=== PATIENT | female | born 1995 | race Caucasian/White ===

== ENCOUNTER → 2018-05-31 | Outpatient (CLI) | payer BC ==
[~2018-05-31] MED LIST: BCPILLS PO; BUPRTAB51 PO; CLON1TAB4 PO; EFF75 PO; TRAZ50TA35 PO
== END | disposition home or self-care (01) ==
LOC: C.NEUR 11:40
PROVIDERS: ATTEND Internal Medicine Pulmonary Disease
DX: G47.21 Circadian rhythm sleep disorder, delayed sleep phase type (principal); R53.83 Other fatigue; G47.00 Insomnia, unspecified; R06.83 Snoring; R40.0 Somnolence